=== PATIENT | male | born 1995 | race Caucasian/White ===

== ENCOUNTER 2018-09-02 15:55 | Emergency (ER) | payer MEDICAID, OTHER ==
[~2018-09-02] VITALS: Ht 172.7 cm; Wt 82.0 kg
[2018-09-02] MEDS ORDERED: IBUPROFEN 600MG TABLET PO ONE (17:00)
[2018-09-02 17:04] VITALS: BP 138/58
[2018-09-02] MEDS ORDERED: BACITRACIN ZINC OINT UDPKT TOP ONE (17:45)
== END 2018-09-02 18:08 | disposition home or self-care (01) ==
LOC: ER 15:55
DX: S70.212A Abrasion, left hip, initial encounter (principal); S50.312A Abrasion of left elbow, initial encounter; V13.4XXA Pedal cycle driver injured in collision with car, pick-up truck or van in traffic accident, initial encounter; Y93.55 Activity, bike riding; Y92.488 Other paved roadways as the place of occurrence of the external cause
CPT/HCPCS: 73080; 73502; 99283

== ENCOUNTER 2018-09-17 00:46 | Emergency (ER) | payer OTHER ==
[2018-09-17 00:56] VITALS: BP 118/73
== END 2018-09-17 02:50 | disposition left against medical advice (07) ==
LOC: ER 00:46
DX: Z53.21 Procedure and treatment not carried out due to patient leaving prior to being seen by health care provider (principal)

== ENCOUNTER 2024-10-12 20:40 | Emergency (ER) | payer MEDICAID, OTHER ==
[~2024-10-12] VITALS: Ht 180.3 cm; Wt 84.0 kg
[~2024-10-12 20:40] MED LIST: CLIN-194 MT
[2024-10-12 20:42] VITALS: TEMP 36.8; O2SAT 100
[2024-10-12 20:50] VITALS: O2SAT 98
[2024-10-12 22:40] VITALS: BP 107/63; PULSE 89; RESP 16
[2024-10-12] MEDS: KETOROLAC 15MG/ML VIAL IM ONE (22:40)
[2024-10-12] MEDS ORDERED: LIDO-53 TP (23:11)
[2024-10-12] MEDS ORDERED: NAPR-1176 MT (23:11)
== END 2024-10-12 23:55 | disposition home or self-care (01) ==
LOC: ER 20:40
DX: M70.51 Other bursitis of knee, right knee (principal); Y93.89 Activity, other specified
CPT/HCPCS: 99283; 73562; 96372; J1885